=== PATIENT | female | born 1950 | race Caucasian/White ===

== ENCOUNTER 2017-01-09 17:00 | Inpatient (IN) | payer MEDICARE ==
--- NOTE | ~2017-01-09 | CR72 ---
[facility] A Service of [facility] RADIOLOGY TEXT RESULTS PATIENT: JUSTO CURRY LOCATION: [facility] : 48 UNIT #: [id number] AGE: [address]: Quinten Rodriguez MD SEX: F ORDER DR: [id number] [facility] [address] [place], [place] [address] [id number] MR#: [id number] Acc #: [id number] NAME: JUSTO CURRY : 1950 SEX: F STUDY DATE/TIME: 01/09/2017 21:48 UNIT: [facility] ROOM: [facility] STUDY DESCRIPTION: CR Chest Single View Portable Attending Physician: Quinten Rodriguez M.D. Ordering Physician: Quinten Rodriguez M.D. Primary Care Physician: Delia Hoffman Aprn MEDICAL IMAGING REPORT This report is preliminary unless electronic signature is present EXAM AP portable chest. Date: 01/09/2017 at 21:48. HISTORY 66-year-old female with complaints of shortness breath, weakness and COPD. Symptoms began today. COMPARISON AP portable chest 04/05/2016. FINDINGS Advanced emphysema with chronic interstitial bibasilar changes are again noted. No definite acute airspace disease. There is, however, mild bronchiolar thickening in the medial lung bases which may represent changes of small airways infectious-inflammatory process. Heart size is normal. No definite pleural effusion or pneumothorax or acute osseous abnormality. IMPRESSION 1. Medial bibasilar bronchial wall thickening with bronchiectasis, suggesting small airways infectious-inflammatory process. 2. Emphysema with chronic-appearing interstitial changes in lung bases. 3. No consolidation. Dictated by... Starla Aguila M.D. THIS IS AN ELECTRONICALLY VERIFIED REPORT Starla Aguila M.D. at 01/10/2017 2:09 PM LLH/gz TD: 01/10/2017 09:55 JOB #: [id number] [facility] A Service of [facility] RADIOLOGY TEXT RESULTS PATIENT: JUSTO CURRY [facility] [id number] : [birth year] UNIT #: [id number] AGE: [address]: Quinten Rodriguez MD SEX: F ORDER DR: MEDICAL IMAGING REPORT COPY
--- NOTE | ~2017-01-09 | DS ---
Unit #: [id number] #: [id number] Patient: JUSTO CURRY [id number] [address] [place], [place] [address] [id number] MR#: [id number] NAME: JUSTO CURRY ROOM: 204 Age: 66 Sex: F Admission Date: 01/09/2017 : 1950 Discharge Date: 01/13/2017 Attending Physician: Quinten Rodriguez M.D. Primary Care Physician: Delia Hoffman, Job Analyst DISCHARGE SUMMARY DISCHARGE DIAGNOSES 1. Chronic obstructive pulmonary disease exacerbation. 2. Acute on chronic hypoxemic respiratory failure. 3. Obstructive sleep apnea, maintained on CPAP. 4. Hypertension. 5. Anxiety and depression. 6. Hyperlipidemia. 7. History of iron deficiency anemia, followed by Dr. Nugent. 8. History of colonic polyps. DISCHARGE MEDICATIONS Albuterol inhaler or nebulizer every 4 hours as needed; Perforomist nebulizer b.i.d.; Pulmicort nebulizer b.i.d.; prednisone 40 mg for four days, decreased by 10 mg every four days until off; doxycycline 100 mg b.i.d. x5 days; Zoloft 100 mg b.i.d.; Diflucan 100 mg daily for 12 days; cetirizine 10 mg daily; Xanax 0.5 in the morning and 2 mg at bedtime; diltiazem 300 mg daily; home oxygen at 3 L; Lipitor 20 mg daily; Tenex 1 mg daily; Zestril 5 mg daily; Pepcid 20 mg daily; Singulair 10 mg daily; [place] 10/325 one q.4 hours as needed; potassium 10 mEq daily; Daliresp 500 mg daily; vitamin C 500 mg daily. HOSPITAL COURSE A 66-year-old white female with history of severe COPD and chronic respiratory failure, who has been treated as an outpatient with prednisone and antibiotics x2 without improvement, presented to the office with increased shortness of breath, cough, and wheezing. She had been seen by her visiting nurse, who had called the office and guide her in. In the office, she was noted to be quite tachypneic and breathing about 25 times a minute. Her O2 saturation was 97% on 3 L. She had marked audible wheezing. She was admitted from the office. PAST MEDICAL HISTORY Significant for severe COPD; chronic respiratory failure, maintained on home O2 at 3 L; hypertension; KRISTIN, maintained on CPAP; anxiety; depression; hyperlipidemia; iron deficiency anemia; and colonic polyps, followed by Dr. Nugent. PAST SURGICAL HISTORY Tubal ligation, appendectomy, cataract extraction surgery. ALLERGIES Elavil and penicillin. Unit #: [id number] #: [id number] Patient: JUSTO CURRY HOME MEDICATIONS [place] 10/325, Tenex, Lipitor, ProAir, Zoloft, Xanax, albuterol sulfate, Zestril, cetirizine, Singulair, vitamin C, Daliresp, potassium chloride, Perforomist, prednisone, diltiazem, Pepcid. I believe, she is also on Pulmicort. O2 at 3 L. SOCIAL HISTORY Reformed smoker. No alcohol or illicit drugs. FAMILY HISTORY Diabetes and asthma. REVIEW OF SYSTEMS CONSTITUTIONAL: She had no fever or chills. HEENT: Some rhinorrhea, nasal congestion. PULMONARY: As noted. CARDIAC: No chest pain or palpitations. GI: No nausea or vomiting. : No hematuria or dysuria. ENDOCRINE: No polyuria or polydipsia. HEMATOLOGIC: No easy bruising or bleeding. SKIN: No rash. NEURO: No unilateral weakness or numbness or seizures. PHYSICAL EXAMINATION GENERAL: White female, moderate distress, using accessory muscles. VITAL SIGNS: Blood pressure 122/84, pulse 71, respiratory rate 18, afebrile. HEENT: Normocephalic, atraumatic. Pupils are equal, round, and reactive. Sclerae nonicteric. Nasal passages patent. Posterior pharynx clear. Mucous membranes moist. NECK: Supple. Trachea midline. No cervical or supraclavicular lymphadenopathy. LUNGS: Reveal expiratory wheezes bilaterally. Poor air flow. CARDIAC: Regular rate and rhythm. Could not appreciate murmur, rub, or gallop. ABDOMEN: Nontender. Bowel sounds present. No hepatosplenomegaly. EXTREMITIES: Without clubbing, cyanosis, or edema. NEUROLOGIC: Awake, alert, and oriented x3. Cranial nerves grossly intact. Muscle strength symmetric bilaterally. PSYCHIATRIC: Affect calm. DIAGNOSTIC STUDIES LABORATORY RESULTS: Revealed clear lung perez. Arterial blood gas; pH 7.43, pCO2 41, pO2 of 96 on 3 L. BMP reviewed, sodium 134, creatinine 0.7. White count 3300, hematocrit 32.3, platelet count normal. ADMISSION DIAGNOSES Chronic obstructive pulmonary disease exacerbation, acute on chronic respiratory failure, obstructive sleep apnea. She was treated with inhaled bronchodilators, IV Solu-Medrol, covered with antibiotics. O2 was administered. Deep venous thrombosis prophylaxis was applied. She improved significantly within the next 48 hours. Her steroids were weaned, and she is being discharged home in improved condition on her routine medications and a tapering dose of prednisone and doxycycline. She is to follow up in the office in 2 to 3 weeks. Unit #: [id number] #: [id number] Patient: JUSTO CURRY Dictated by... Andreia Villalobos/atif TD: 01/15/2017 03:41 JOB #: [id number] DISCHARGE SUMMARY X Quinten Rodriguez MD X DISCHARGE SUMMARY
[~2017-01-09 17:00] MED LIST: ACETAMINOPHEN PO; ADVAIR 500-501 EACH IH; ADVAIR 5001 DISK W/D PO; ALBUTEROL MININEB NEB; ALLEGRA180 MG PO; ALPRAZOLAM PO; CARDIZEM SR PO; CETIRIZINE HCL10 MG PO; CLOPIDOGREL75 MG PO; COLESTID PO; DALIRESP500 MCG PO; DILTIAZEM 24HR180 M1 PO; DUONEB 2.5-0.5 M3 ML NEB; FLONASE 0.05% N16 G1; GENERLAC PO; GLUCOPHAGE500 M1 PO; HYDROCODON-ACE1 EAC1 PO; IPRATROPIUM0.2 MG/ML NEB; LEVAQUIN PO; LEVAQUIN750 MG PO; LIPITOR PO; LIPITOR20 MG PO; LORATADINE PO; MONTELUKAST SOD10 MG PO; MUCINEX PO; NASONEX17 GM; NEXIUM PO; NILSTAT PO; NORCO 10-325 TA1 TAB PO; NYSTATIN15 GM OINT EXT; NYSTATIN5 ML; NYSTATIN5 ML PO; OXYGEN; PERFOROMIS20 MCG/2 M INH; PHENERGAN25 MG PO; POTASSIUM CHLO10 ME1 PO; PREDNISONE PO; PREDNISONE10 MG PO; PREDNISONE10 MG/DOSE PO; PRILOSEC20 M1 PO; PROAIR HFA8.5 GM IH; PULMICORT0.5 MG/2 M INH; QVAR7.3 G1 INH; QVAR7.3 GM INH; SPIRIVA18 MCG INH; TENEX1 MG PO; VIBRAMYCIN100 M1 PO; VICODIN ES 7.51 EACH PO; VITAMIN C500 M5 PO; XANAX0.5 MG PO; XANAX1 MG PO; XANAX2 MG PO; ZEGERID40 MG/PKT PO; ZESTRIL5 MG PO; ZITHROMAX500 MG PO; ZOLOFT PO; ZOLOFT100 MG PO; ZYRTEC PO
[2017-01-09 19:31] LABS: ARTERIAL BLD GAS O2 SATURATION 96.9 % (90.0-100.0); ARTERIAL BLOOD GAS CARBOXY HB 0.7 %sat (0.0-9.0); ARTERIAL BLOOD GAS HCO3 27.9 mmol/L; ARTERIAL BLOOD GAS PCO2 41.6 mmHg (35.0-45.0); ARTERIAL BLOOD GAS pH 7.434 (7.350-7.450)
[2017-01-09 19:33] LABS: ARTERIAL BLOOD GAS ALLEN TEST NORMAL; ARTERIAL BLOOD GAS ART SITE RIGHT RADIAL; ARTERIAL BLOOD GAS DELIVERY NASAL CANNULA; ARTERIAL DRAW? YES
[2017-01-09] MEDS ORDERED: PEPCID PO (20:00)
[2017-01-09] MEDS ORDERED: DILTIAZEM ER300 MG PO (20:00)
[2017-01-10 05:52] LABS: BASOPHIL% 0.3 % (0-2.5); HEMATOCRIT 32.3 % (35.0-45.0); HEMOGLOBIN 10.7 gm/dL (12.0-16.0); LYMPHOCYTE# 0.6 X10e3 (1.0-3.5); LYMPHOCYTE% 19.3 % (17.0-45.0); MEAN CORPUSCULAR HEMOGLOBIN 27.6 PG (28-34); MEAN CORPUSCULAR HGB CONC 33.2 g/dL (30-36); MEAN PLATELET VOLUME 6.9 FL (6.5-11.5); MONOCYTE# 0.1 X10e3 (0-1.0); MONOCYTE% 4.1 % (3.0-12.0); NEUTROPHIL# 2.5 X10e3 (1.5-7.1); NEUTROPHIL% 76.3 % (40-75); PLATELET COUNT 312 X10e3 (140-420); RED CELL DISTRIBUTION WIDTH 16.2 % (11.0-15.5); WHITE BLOOD COUNT 3.3 X10e3 (4.0-10.5)
[2017-01-10 05:57] LABS: DIFF IND NO
[2017-01-10 06:18] LABS: BLOOD UREA NITROGEN 13 mg/dL (9-23); BUN/CREATININE RATIO 18.57; CALCIUM SERUM 9.4 mg/dL (8.4-10.2); CARBON DIOXIDE 26 mmol/L (22-31); CHLORIDE 93 mmol/L (100-111); CREATININE SERUM 0.7 mg/dL (0.6-1.4); GLOM FILT RATE Estimated ABOVE60 mL/min (>60); GLUCOSE FASTING 174 mg/dL (70-110); POTASSIUM 3.9 mmol/L (3.5-5.1); SODIUM 134 mmol/L (135-145)
[2017-01-13] MEDS ORDERED: DIFLUCAN100 MG PO (16:33)
[2017-01-13] MEDS ORDERED: DOXYCYCLINE HY100 M3 PO (16:35)
[2017-01-13] MEDS ORDERED: PREDNISONE10 MG/DOSE PO (16:39)
[2017-01-13] MEDS ORDERED: PULMICORT0.5 MG/21 INH (16:58)
== END 2017-01-13 17:53 | disposition home or self-care (01) | DRG 189 ==
LOC: C2A 17:00
PROVIDERS: Internal Medicine
DX: J96.21 Acute and chronic respiratory failure with hypoxia (principal); B37.0 Candidal stomatitis; J44.1 Chronic obstructive pulmonary disease with (acute) exacerbation; I10 Essential (primary) hypertension; G47.33 Obstructive sleep apnea (adult) (pediatric); F41.9 Anxiety disorder, unspecified; F32.9 Major depressive disorder, single episode, unspecified; E78.5 Hyperlipidemia, unspecified; D50.9 Iron deficiency anemia, unspecified; Z86.010 Personal history of colon polyps
CPT/HCPCS: 36600; 71010; 80048; 82803; 82947; 85025; 94640; 94760; J0696; J1650; J1815; J2920

== ENCOUNTER 2017-05-07 12:53 | Emergency (ER) | payer MEDICARE ==
--- NOTE | ~2017-05-07 | EKG ---
PATIENT: JUSTO CURRY UNIT #: [id number] Ventricular Rate: 95 BPM Atrial Rate: 95 BPM P-R Interval: 154 ms QRS Duration: 74 ms Q-T Interval: 344 ms QTC Calculation(Bezet): 432 ms P [place]: 96 degrees Calculated R [place]: -35 degrees Calculated T [place]: 71 degrees Diagnosis Line: Sinus rhythm with Fusion complexes Diagnosis Line: Left axis deviation Diagnosis Line: Junctional ST depression, probably normal Diagnosis Line: Abnormal ECG Diagnosis Line: When compared with ECG of 05-APR-2016 10:04, Diagnosis Line: Fusion complexes are now Present Diagnosis Line: Confirmed by ANJELICA OTTO MD ([id number]) on Diagnosis Line: 05/08/2017 11:07:21 AM INTERPRETING MD: FAM CARTY
--- NOTE | ~2017-05-07 | CR72 ---
[facility] A Service of [facility] RADIOLOGY TEXT RESULTS PATIENT: JUSTO CURRY LOCATION: [facility] : 48 UNIT #: [id number] AGE: [address]: Manohar Be MD SEX: F ORDER DR: [id number] [facility] [address] [place], [place] [address] [id number] MR#: [id number] Acc #: [id number] NAME: JUSTO CURYR : 1950 SEX: F STUDY DATE/TIME: 05/07/2017 14:23 UNIT: GA ROOM: STUDY DESCRIPTION: CR Chest Single View Portable Attending Physician: Manohar Be M.D. Ordering Physician: Manohar Be M.D. Primary Care Physician: Delia Hoffman Aprn MEDICAL IMAGING REPORT This report is preliminary unless electronic signature is present EXAM Frontal chest, 05/07/2017 INDICATION 66-year-old female with shortness of air, COPD, symptoms began today, hypertension, diabetes. TECHNIQUE Frontal chest compared with 01/09/2017. FINDINGS Cardiac silhouette is within normal limits. Mild interval increase in interstitial prominence may reflect an element of vascular congestion. There are chronic interstitial changes in both lungs with more confluent areas of fibrosis and scarring in the lower and midlung zones. No effusion, pneumothorax or dense consolidation. IMPRESSION 1. Borderline cardiac size and underlying emphysema. Interstitial prominence in both lungs suspicious for development of mild vascular congestion. Diffuse interstitial infiltrates also in the differential. Imaging followup to resolution after appropriate therapy is recommended. 2. No effusion or dense consolidation and no pneumothorax. Dictated by... Stanislaw Downs M.D. THIS IS AN ELECTRONICALLY VERIFIED REPORT Stanislaw Downs M.D. at 05/08/2017 11:13 AM [facility] A Service of [facility] RADIOLOGY TEXT RESULTS PATIENT: JUSTO CURRY LOCATION: [facility] : 48 UNIT #: [id number] AGE: [address]: Manohar Be MD SEX: F ORDER DR: TD: 05/08/2017 01:56 JOB #: [id number] MEDICAL IMAGING REPORT Page 1 of 1 COPY
[~2017-05-07 12:53] MED LIST changes: +DIFLUCAN100 MG PO; +DILTIAZEM ER300 MG PO; +DOXYCYCLINE HY100 M3 PO; +PEPCID PO; +PULMICORT0.5 MG/21 INH
[2017-05-07 14:39] LABS: BASOPHIL# 0.1 X10e3 (0-0.3); BASOPHIL% 0.4 % (0-2.5); EOSINOPHIL% 0.1 % (0.0-7.0); HEMATOCRIT 35.5 % (35.0-45.0); HEMOGLOBIN 11.7 gm/dL (12.0-16.0); LYMPHOCYTE# 1.4 X10e3 (1.0-3.5); LYMPHOCYTE% 7.3 % (17.0-45.0); MEAN CELL VOLUME 86.8 FL (83-96); MEAN CORPUSCULAR HEMOGLOBIN 28.7 PG (28-34); MEAN PLATELET VOLUME 7.2 FL (6.5-11.5); MONOCYTE# 1.6 X10e3 (0-1.0); MONOCYTE% 8.4 % (3.0-12.0); NEUTROPHIL# 15.8 X10e3 (1.5-7.1); NEUTROPHIL% 83.8 % (40-75); PLATELET COUNT 308 X10e3 (140-420); RED BLOOD COUNT 4.08 X10e (3.90-5.30); RED CELL DISTRIBUTION WIDTH 16.5 % (11.0-15.5); WHITE BLOOD COUNT 18.9 X10e3 (4.0-10.5)
[2017-05-07 14:42] LABS: DIFF IND YES
[2017-05-07 14:53] LABS: ARTERIAL BLD GAS O2 SATURATION 94.5 % (90.0-100.0); ARTERIAL BLOOD GAS CARBOXY HB 1.2 %sat (0.0-9.0); ARTERIAL BLOOD GAS HCO3 28.4 mmol/L; ARTERIAL BLOOD GAS MET HB 0.8 %sat (0.0-2.0); ARTERIAL BLOOD GAS pH 7.329 (7.350-7.450)
[2017-05-07 14:55] LABS: ARTERIAL BLOOD GAS ALLEN TEST NORMAL; ARTERIAL BLOOD GAS ART SITE RIGHT RADIAL; ARTERIAL BLOOD GAS DELIVERY NASAL CANNULA; ARTERIAL BLOOD GAS LITER FLOW 3.5; ARTERIAL DRAW? YES
[2017-05-07 14:59] LABS: ALBUMIN SERUM 4.2 g/dL (3.5-5.0); BILIRUBIN, DIRECT 0.1 mg/dL (0.0-0.2); BILIRUBIN,INDIRECT 1.1 mg/dL (0.0-0.9); BILIRUBIN,TOTAL 1.2 mg/dL (0.2-2.0); BUN/CREATININE RATIO 18.57; CALCIUM SERUM 9.3 mg/dL (8.4-10.2); CREATININE SERUM 0.7 mg/dL (0.6-1.4); POTASSIUM 3.9 mmol/L (3.5-5.1); PROTEIN TOTAL SERUM 7.9 g/dL (6.0-8.3)
[2017-05-07 15:08] LABS: ANISOCYTOSIS SL; PLATELET ESTIMATE NORMAL (NORMAL)
[2017-05-07 15:45] LABS: POC - CKMB 2.6 ng/mL (0.0-7.9); POC - TROPONIN <0.05 ng/mL (<=0.05)
== END 2017-05-07 16:42 | disposition home or self-care (01) ==
LOC: CED 12:53
PROVIDERS: Emergency Medicine
DX: J44.1 Chronic obstructive pulmonary disease with (acute) exacerbation (principal); R10.9 Unspecified abdominal pain; R11.10 Vomiting, unspecified; Z79.899 Other long term (current) drug therapy; Z88.0 Allergy status to penicillin; Z88.1 Allergy status to other antibiotic agents; Z88.8 Allergy status to other drugs, medicaments and biological substances
CPT/HCPCS: 36415; 36600; 71010; 80048; 80076; 82553; 82803; 83880; 84484; 85025; 93005; 94640; 96374; 96375; 99285; J2405; J2930

== ENCOUNTER → 2017-05-29 | Outpatient (CLI) | payer MEDICARE ==
[2017-05-29 14:47] LABS: HEMATOCRIT 30.5 % (35.0-45.0); MEAN CELL VOLUME 85.2 FL (83-96); MEAN CORPUSCULAR HEMOGLOBIN 27.8 PG (28-34); MEAN CORPUSCULAR HGB CONC 32.7 g/dL (30-36); MEAN PLATELET VOLUME 6.6 FL (6.5-11.5); RED BLOOD COUNT 3.57 X10e (3.90-5.30); RED CELL DISTRIBUTION WIDTH 16.5 % (11.0-15.5)
[2017-05-29 14:57] LABS: ARTERIAL BLD GAS O2 SATURATION 94.3 % (90.0-100.0); ARTERIAL BLOOD GAS CARBOXY HB 0.8 %sat (0.0-9.0); ARTERIAL BLOOD GAS HCO3 31.4 mmol/L; ARTERIAL BLOOD GAS MET HB 0.7 %sat (0.0-2.0); ARTERIAL BLOOD GAS PCO2 48.9 mmHg (35.0-45.0); ARTERIAL BLOOD GAS pH 7.415 (7.350-7.450)
[2017-05-29 14:59] LABS: ARTERIAL BLOOD GAS ART SITE RIGHT BRACHIAL; ARTERIAL BLOOD GAS DELIVERY NASAL CANNULA; ARTERIAL BLOOD GAS PO2 75.6 mmHg (80.0-100); ARTERIAL DRAW? YES
[2017-05-29 15:21] LABS: BUN/CREATININE RATIO 12.85; CALCIUM SERUM 9.3 mg/dL (8.4-10.2); CREATININE SERUM 0.7 mg/dL (0.6-1.4); POTASSIUM 3.9 mmol/L (3.5-5.1)
== END | disposition home or self-care (01) ==
LOC: CLAB 14:18
PROVIDERS: Internal Medicine
DX: J44.9 Chronic obstructive pulmonary disease, unspecified (principal)
CPT/HCPCS: 36415; 36600; 80048; 82803; 85027